=== PATIENT | male | born 1950 | race Caucasian/White ===

== ENCOUNTER 2022-03-02 11:05 | Outpatient (CLI) | payer MEDICARE ==
[2022-03-02 22:54] LABS: SARS-CoV-2 PCR by NAA Not Detected (NotDetected)
== END 2022-03-02 11:06 | disposition home or self-care (01) ==
LOC: CSHLAB 11:05
PROVIDERS: ATTEND Family Medicine
DX: Z20.822 Contact with and (suspected) exposure to COVID-19 (principal)
CPT/HCPCS: U0003; U0005